=== PATIENT | female | born 1960 | race Caucasian/White ===

== ENCOUNTER 2016-12-17 11:26 | Inpatient (IN) | payer BC ==
[~2016-12-17] VITALS: Ht 157.5 cm; Wt 66.0 kg
[2016-12-17] VITALS (129 sets, daily range): BP systolic 100–149; BP diastolic 52–76; PULSE 44–60; TEMP 97.6–98.2; O2SAT 82–98
[~2016-12-17 11:26] MED LIST: AMARYL 2MG T2 MG/TAB PO; ASPIRIN 32325 MG/TAB PO; COZAAR100 MG PO; CRESTOR 10MG10 MG PO; FLEXERIL 1010 MG/TAB PO; GLUCOPHAGE1000 MG PO; LOPRESSOR 550 MG/TAB PO; LORTAB 7.5/5001 TAB PO; NITROSTAT0.4 MG/TAB SL; PLAVIX 75MG TAB75 MG PO; PRILOTC PO; XANAX .25M0.25 MG/TA PO; ZOCOR 10MG10 MG PO; ZOCOR5 MG PO
[2016-12-17 12:28] LABS: HEMOGLOBIN 13.7 g/dl (12.5-16.0); MEAN CELL VOLUME 88 fl (80.0-100.0); MEAN CORPUSCULAR HEMOGLOBIN 29 pg (27.0-31.0); MEAN CORPUSCULAR HGB CONC 33 g/dl (33.0-37.0); MEAN PLATELET VOLUME 9.8 fl (7.4-10.4); PLATELET COUNT 184 K/mm3 (130-400); RED BLOOD COUNT 4.67 M/mm3 (4.10-5.30); REDCELL DISTRIBUTION WIDTH-CV 14.8 % (11.5-14.5); WHITE BLOOD COUNT 10.7 K/mm3 (4.8-10.8)
[2016-12-17 12:32] LABS: INR 1.1 (0.8-3.0); PROTHROMBIN TIME 11.7 SECONDS (9.7-12.8)
[2016-12-17 12:49] LABS: CALCIUM 9.6 mg/dL (8.4-10.2); CREATININE, serum 0.66 mg/dL (0.52-1.25); POTASSIUM 3.9 mmol/L (3.4-5.0)
[2016-12-17] MEDS ORDERED: NOVOLOG FLEX100 U/ML SQ (13:33)
[2016-12-17] MEDS ORDERED: LEVEMIR FLEX100 U/ML SQ (13:38)
[2016-12-17] MEDS ORDERED: MAG-OX 400400 MG/TAB PO (13:39)
[2016-12-17] MEDS ORDERED: ASPIRIN E.C. 8181 MG PO (13:39)
[2016-12-17] MEDS ORDERED: JANUMXR1000-50 PO (13:41)
[2016-12-17] MEDS ORDERED: DAZIDOX10 MG PO (13:43)
[2016-12-17] MEDS ORDERED: NEURONTIN300 MG/CAP PO ×2 (13:45)
[2016-12-17] MEDS ORDERED: MULTI VITAMINS1 TAB PO (13:48)
[2016-12-17] MEDS ORDERED: FARXIGA5 PO (13:48)
[2016-12-17] MEDS ORDERED: ANORO IH (13:49)
[2016-12-17] MEDS ORDERED: PROZAC 10MG10 MG PO (13:50)
[2016-12-17] MEDS ORDERED: PLAVIX 75MG TAB75 MG PO (19:58)
[2016-12-18] VITALS (141 sets, daily range): BP systolic 142–145; BP diastolic 72–75; PULSE 54–74; TEMP 97.2–98; O2SAT 86–100
[2016-12-18 05:12] LABS: BASO # 0.1 (0.0-0.2); BASO % 0.6 % (0.0-2.0); EOS # 0.1 (0.0-0.7); EOS % 1.1 % (0-4.0); GRAN # 6.2 (1.4-6.5); GRAN % 68.4 % (42.2-75.2); HEMOGLOBIN 14.5 g/dl (12.5-16.0); LYMPH % 21.7 % (20.0-51.0); MEAN CELL VOLUME 88 fl (80.0-100.0); MEAN CORPUSCULAR HEMOGLOBIN 29 pg (27.0-31.0); MEAN CORPUSCULAR HGB CONC 33 g/dl (33.0-37.0); MEAN PLATELET VOLUME 9.6 fl (7.4-10.4); MONO # 0.7 (0.1-0.6); MONO % 7.6 % (1.7-9.3); PLATELET COUNT 182 K/mm3 (130-400); RED BLOOD COUNT 5.01 M/mm3 (4.10-5.30); REDCELL DISTRIBUTION WIDTH-CV 15.1 % (11.5-14.5); WHITE BLOOD COUNT 9.1 K/mm3 (4.8-10.8)
[2016-12-18 05:26] LABS: CALCIUM 9.9 mg/dL (8.4-10.2); CREATININE, serum 0.65 mg/dL (0.52-1.25); POTASSIUM 4.3 mmol/L (3.4-5.0)
== END 2016-12-18 10:58 | disposition home or self-care (01) | DRG 247 ==
LOC: COL.CAR 11:26 → ICU 16:38 → COL.CAR 16:49 → ICU 16:50
PROVIDERS: Internal Medicine Interventional Cardiology
PROC: 027034Z Dilation of Coronary Artery, One Artery with Drug-eluting Intraluminal Device, Percutaneous Approach (ICD-10-PCS; principal; 2016-12-17)
PROC: 4A023N7 Measurement of Cardiac Sampling and Pressure, Left Heart, Percutaneous Approach (ICD-10-PCS; 2016-12-17)
PROC: B2111ZZ Fluoroscopy of Multiple Coronary Arteries using Low Osmolar Contrast (ICD-10-PCS; 2016-12-17)
PROC: B2121ZZ Fluoroscopy of Single Coronary Artery Bypass Graft using Low Osmolar Contrast (ICD-10-PCS; 2016-12-17)
PROC: B2181ZZ Fluoroscopy of Left Internal Mammary Bypass Graft using Low Osmolar Contrast (ICD-10-PCS; 2016-12-17)
DX: I25.10 Atherosclerotic heart disease of native coronary artery without angina pectoris (principal); I10 Essential (primary) hypertension; J44.9 Chronic obstructive pulmonary disease, unspecified; E11.9 Type 2 diabetes mellitus without complications; F17.210 Nicotine dependence, cigarettes, uncomplicated; Z79.84 Long term (current) use of oral hypoglycemic drugs
CPT/HCPCS: C9600; J0583; J1815; J2250; J3010; Q9967

== ENCOUNTER → 2017-04-06 | Outpatient (CLI) | payer MEDICAID ==
[~2017-04-06] MED LIST changes: +ANORO IH; +ASPIRIN E.C. 8181 MG PO; +DAZIDOX10 MG PO; +FARXIGA5 PO; +JANUMXR1000-50 PO; +LEVEMIR FLEX100 U/ML SQ; +MAG-OX 400400 MG/TAB PO; +MULTI VITAMINS1 TAB PO; +NEURONTIN300 MG/CAP PO; +NOVOLOG FLEX100 U/ML SQ; +PROZAC 10MG10 MG PO
== END ==
LOC: COL.RAD 03-29 08:00
DX: K76.89 Other specified diseases of liver (principal); R06.02 Shortness of breath; Z90.49 Acquired absence of other specified parts of digestive tract

== ENCOUNTER → 2017-05-02 | Outpatient (CLI) | payer MEDICAID ==
[2017-05-02 09:25] LABS: ARTERIAL BLD GAS O2 SATURATION 96.6 % (92-100); ARTERIAL BLD GAS TCO2 CT 25.6; ARTERIAL BLOOD GAS BASE EXCESS 1.9 (-2-2); ARTERIAL BLOOD GAS HCO3 24.6 meq/L (22-26); ARTERIAL BLOOD GAS PCO2 32.6 mmHg (35-45)
== END ==
LOC: COL.PUL 07:49
PROVIDERS: Internal Medicine Interventional Cardiology
DX: R06.02 Shortness of breath (principal); F17.210 Nicotine dependence, cigarettes, uncomplicated

== ENCOUNTER 2018-06-30 07:33 | Outpatient (CLI) | payer MEDICAID ==
[2018-06-30 08:06] VITALS: BP 109/61; PULSE 57; TEMP 98.6
[2018-06-30 09:05] LABS: HEMOGLOBIN 11.1 g/dl (12.5-16.0); MEAN CELL VOLUME 87 fl (80.0-100.0); MEAN CORPUSCULAR HEMOGLOBIN 28 pg (27.0-31.0); MEAN CORPUSCULAR HGB CONC 32 g/dl (33.0-37.0); MEAN PLATELET VOLUME 9.8 fl (7.4-10.4); PLATELET COUNT 167 K/mm3 (130-400); RED BLOOD COUNT 3.95 M/mm3 (4.10-5.30); REDCELL DISTRIBUTION WIDTH-CV 14.3 % (11.5-14.5)
[2018-06-30 09:08] LABS: INR 1.1 (0.8-3.0); PROTHROMBIN TIME 12.1 SECONDS (9.7-12.8)
[2018-06-30 09:15] LABS: CALCIUM 9.3 mg/dL (8.4-10.2); CREATININE, serum 0.62 (0.52-1.25); POTASSIUM 4.2 mmol/L (3.4-5.0)
[2018-06-30 09:20] LABS: HEMATOCRIT 34.3 % (37.0-47.0)
[2018-06-30] MEDS ORDERED: ATIVAN 0.50.5 MG/TAB PO (09:50)
[2018-06-30] MEDS ORDERED: GLUCOPHAGE1000 MG PO (09:51)
[2018-06-30] MEDS ORDERED: PROTONIX 40MG T40 MG PO (09:52)
[2018-06-30] MEDS ORDERED: CRESTOR20 MG PO (09:57)
[2018-06-30] MEDS ORDERED: IMDUR 30MG30 MG/TAB PO (09:57)
[2018-06-30 11:20] VITALS: BP 117/62; PULSE 58
--- NOTE | 2018-06-30 11:20 | NUR ---
PT IN ROOM 15 POST VIPIN. VSS AND AX0X3. PAIN DENIED AT THIS TIME AND IS RESTING IN BED.
[2018-06-30 11:35] VITALS: BP 112/61; PULSE 57
[2018-06-30 11:50] VITALS: BP 106/54; PULSE 53
[2018-06-30 12:05] VITALS: BP 114/61; PULSE 52
[2018-06-30 12:20] VITALS: BP 112/61; PULSE 58
--- NOTE | 2018-06-30 12:45 | NUR ---
PT TOLERATED FLUIDS PO WITHOUT ISSUE POST VIPIN. VSS AND AX0.DISCHARGE INSTRUCTIONS REVIEWED AND SIGNED. IV REMOVED FROM R HAND AND WRAPPED. PT WHEELED OUT SAFELY VIA WHEELCHAIR BY BURSING STUDENT. BROTHER WAITING WITH CAR INSPECTOR MOTOR VEHICLES.
== END 2018-06-30 12:30 | disposition home or self-care (01) ==
LOC: COL.RAD 07:33
PROVIDERS: Internal Medicine Interventional Cardiology
DX: I08.1 Rheumatic disorders of both mitral and tricuspid valves (principal)
CPT/HCPCS: J2704; J7030

== ENCOUNTER 2018-08-04 10:48 | Day surgery (SDC) | payer MEDICAID ==
[~2018-08-04] VITALS: Ht 157.6 cm; Wt 69.3 kg
[2018-08-04] VITALS (8 sets, daily range): BP systolic 105–130; BP diastolic 53–87; PULSE 51–64; TEMP 98.1
[~2018-08-04 10:48] MED LIST changes: +ATIVAN 0.50.5 MG/TAB PO; +CRESTOR20 MG PO; +IMDUR 30MG30 MG/TAB PO; +PROTONIX 40MG T40 MG PO
[2018-08-04] MEDS ORDERED: PROVENTIL0.09 MG/A1 IH (11:53)
[2018-08-04] MEDS ORDERED: LIPITOR 10MG10 MG PO (11:53)
[2018-08-04] MEDS ORDERED: FLEXERIL 1010 MG/TAB PO (11:54)
[2018-08-04] MEDS ORDERED: VITAMIN D31000 I1 PO (11:55)
[2018-08-04] MEDS ORDERED: PROZAC 20MG20 MG PO (11:55)
[2018-08-04] MEDS ORDERED: PROZAC40 MG PO (11:56)
[2018-08-04 12:05] LABS: CALCIUM 9.5 mg/dL (8.4-10.2); CREATININE, serum 0.6 (0.52-1.25); POTASSIUM 4.2 mmol/L (3.4-5.0)
[2018-08-04 12:06] LABS: HEMOGLOBIN 10.8 g/dl (12.5-16.0); MEAN CELL VOLUME 87 fl (80.0-100.0); MEAN CORPUSCULAR HEMOGLOBIN 28 pg (27.0-31.0); MEAN CORPUSCULAR HGB CONC 32 g/dl (33.0-37.0); PLATELET COUNT 160 K/mm3 (130-400); RED BLOOD COUNT 3.84 M/mm3 (4.10-5.30); REDCELL DISTRIBUTION WIDTH-CV 14.7 % (11.5-14.5)
[2018-08-04 12:15] LABS: INR 1.1 (0.8-3.0)
[2018-08-04 12:39] LABS: HEMATOCRIT 33.5 % (37.0-47.0)
--- NOTE | 2018-08-04 16:24 | NUR ---
PLEASE SEE MERGE FOR MEDICATION ADMINISTRATION TIMES , SEDATION ASSESSMENT DATA FOR INTRA/POST PROCEDURE.
--- NOTE | 2018-08-04 17:57 | NUR ---
Back from Approver. Alert and oriented. Right groin site CD&I and soft to palpation. Left radial Tband with 13 cc air, good pulses and cap refill <3 secs. VSS. Daughter bedside
--- NOTE | 2018-08-04 19:25 | NUR ---
3 cc out of left Tband. No bleeding noted
--- NOTE | 2018-08-04 19:30 | NUR ---
3 cc air out of Tband. No bleeding noted
--- NOTE | 2018-08-04 19:35 | NUR ---
3 cc air out of Tband. No bleeding noted
--- NOTE | 2018-08-04 19:47 | NUR ---
4 cc out of Tband to total 13 cc. No bleeding noted. Tband discontined and pressure dressing applied. INT discontinued intact. Ambulated to bathroom with steady gait. Daughter getting car
--- NOTE | 2018-08-04 19:51 | NUR ---
Discharge instructions given . Transferred to private car by dustin
== END 2018-08-04 19:52 | disposition home or self-care (01) ==
LOC: COL.CAR 10:48
PROVIDERS: Internal Medicine Interventional Cardiology
DX: I25.10 Atherosclerotic heart disease of native coronary artery without angina pectoris (principal); E11.9 Type 2 diabetes mellitus without complications; Z95.1 Presence of aortocoronary bypass graft; Z79.82 Long term (current) use of aspirin; Z79.4 Long term (current) use of insulin; I34.0 Nonrheumatic mitral (valve) insufficiency; I27.20 Pulmonary hypertension, unspecified; K74.60 Unspecified cirrhosis of liver; Z79.02 Long term (current) use of antithrombotics/antiplatelets; J44.9 Chronic obstructive pulmonary disease, unspecified; F17.210 Nicotine dependence, cigarettes, uncomplicated; I10 Essential (primary) hypertension; E78.5 Hyperlipidemia, unspecified; G47.30 Sleep apnea, unspecified; Z88.8 Allergy status to other drugs, medicaments and biological substances
CPT/HCPCS: C1894; J1644; J2250; J3010; Q9967

== ENCOUNTER → 2018-08-25 | Outpatient (CLI) | payer MEDICAID ==
[~2018-08-25] MED LIST changes: +LIPITOR 10MG10 MG PO; +PROVENTIL0.09 MG/A1 IH; +PROZAC 20MG20 MG PO; +PROZAC40 MG PO; +VITAMIN D31000 I1 PO
== END ==
LOC: COL.RAD 07-28 06:58 → COL.PUL 11:20
DX: Z01.812 Encounter for preprocedural laboratory examination (principal); C18.9 Malignant neoplasm of colon, unspecified; I34.0 Nonrheumatic mitral (valve) insufficiency; K74.60 Unspecified cirrhosis of liver; I25.10 Atherosclerotic heart disease of native coronary artery without angina pectoris; F17.210 Nicotine dependence, cigarettes, uncomplicated; Z90.49 Acquired absence of other specified parts of digestive tract; Z95.828 Presence of other vascular implants and grafts
CPT/HCPCS: Q9967

== ENCOUNTER 2018-09-12 12:04 | Day surgery (SDC) | payer MEDICAID ==
[2018-09-12] VITALS (11 sets, daily range): BP systolic 102–134; BP diastolic 45–78; PULSE 57–81; TEMP 97.6–98.8
[~2018-09-12] VITALS: Ht 157.6 cm; Wt 69.8 kg
[~2018-09-12 12:04] MED LIST changes: +LOPRESSOR 225 MG/TAB PO; -LOPRESSOR 550 MG/TAB PO
[2018-09-12 12:53] LABS: HEMOGLOBIN 10.6 g/dl (12.5-16.0); MEAN CELL VOLUME 88 fl (80.0-100.0); MEAN CORPUSCULAR HEMOGLOBIN 28 pg (27.0-31.0); MEAN CORPUSCULAR HGB CONC 32 g/dl (33.0-37.0); MEAN PLATELET VOLUME 9.9 fl (7.4-10.4); PLATELET COUNT 149 K/mm3 (130-400); RED BLOOD COUNT 3.83 M/mm3 (4.10-5.30); REDCELL DISTRIBUTION WIDTH-CV 14.8 % (11.5-14.5)
[2018-09-12 13:02] LABS: CALCIUM 9.3 mg/dL (8.4-10.2); CREATININE, serum 0.73 (0.52-1.25); POTASSIUM 4.4 mmol/L (3.4-5.0)
[2018-09-12 13:08] LABS: HEMATOCRIT 33.6 % (37.0-47.0)
[2018-09-12 13:11] LABS: PROTHROMBIN TIME 11.8 SECONDS (9.7-12.8)
[2018-09-12] MEDS ORDERED: VITAMIN D 400400 IU PO (13:17)
[2018-09-12] MEDS ORDERED: LEVOXYL0.025 MG PO (13:42)
[2018-09-12] MEDS ORDERED: ASPIRIN E.C. 8181 MG PO (13:45)
[2018-09-12] MEDS ORDERED: FARXIGA5 PO (13:48)
[2018-09-12] MEDS ORDERED: NOVOLOG 100U100 U/M1 SQ (13:56)
--- NOTE | 2018-09-12 15:01 | NUR ---
PLEASE SEE MERGE FOR ALL MEDICATION ADMINISTRATION TIMES, SEDATION ASSESSMENT DATA .
--- NOTE | 2018-09-12 16:45 | NUR ---
given few ice chips, Dr Melvin notified of need for post orders, verbalizes he will put them in the computer
--- NOTE | 2018-09-12 17:15 | NUR ---
visiting with family, denies needs
--- NOTE | 2018-09-12 18:05 | NUR ---
assisted up to bathroom and voided QS, then back to bed to rest,
--- NOTE | 2018-09-12 18:19 | NUR ---
instructed on ordering heart healthy diet, luzmaria understanding
--- NOTE | 2018-09-12 18:57 | NUR ---
bedside shift report given to DOMINICK Calabrese
--- NOTE | 2018-09-12 22:43 | NUR ---
Ice pack placed on left chest per order. Patient states pain 3/10, and tolerable. Declined ordered ativan. Denies further needs at this time. Daugter at bedside is staying the night.
--- NOTE | 2018-09-12 23:07 | NUR ---
Shift assessment complete. Patient in bed, awake. States, pain 8/10 chronic back pain and 5/10 pain in PM site. Prn pain medication given. Daughter at bedside. Denies further needs at this time.
--- NOTE | 2018-09-13 02:16 | NUR ---
Patient in bed, resting. Appears comfortable. Daughter at bedside. Will continue to monitor.
[2018-09-13 03:30] VITALS: BP 145/69; PULSE 69; TEMP 99.2
--- NOTE | 2018-09-13 03:30 | NUR ---
Patient in bed, awake. Pain 7/10 in left chest incision. Will give prn pain medication per pt request. Temp 99.4. Instructed patient to C&DB. Will recheck temp. Denies further needs at this time. Will continue to monitor.
--- NOTE | 2018-09-13 05:58 | NUR ---
Patient in bed, dangling at bedside. States she just threw up. She thinks it's from the pain medication. Nausea has resolved since throwing up. BG 123. Crackers and soda given per pt request. Ice pack given for PM site. Will continue to monitor.
--- NOTE | 2018-09-13 07:26 | NUR ---
REPORT FROM KERA TAN.
[2018-09-13 07:57] VITALS: BP 139/63; PULSE 64; TEMP 97.4
--- NOTE | 2018-09-13 10:03 | NUR ---
PT UP INDEPENDENTLY IN ROOM. DRESSING TO LEFT CHEST CDI. ARM IN SLING PER ORDERS. PT DENIES NEEDS AT THIS TIME. PT DID EXPRESS THAT SHE DOES NOT HAVE ANY TRANSPORTATION TO GET HOME. FLOAT PHLEBOTOMIST NOTIFIED. DISCHARGE ORDERS RECIEVED BUT INCOMPLETE AT THIS TIME.
--- NOTE | 2018-09-13 10:25 | NUR ---
SW met with the patient to discuss discharge plan. The patient lives in [place] with her daughter (Jaz), son-in-law, grandson, and her brother. She reports independence with ADLs and has a cane and wheelchair. The patient's PCP is Dr. Lisa Onofre and she receives her medications at the [facility] in [place]. She reports no difficulties obtaining her meds. The patient's DPOA-HC and Living Will are in her chart. Her DPOA-HC is her daughters, Jaz and Chelsea. The patient plans to return home with her family upon discharge. No additional needs at this time.
--- NOTE | 2018-09-13 11:43 | NUR ---
First visit from the fire sprinkler fitter. No needs right now.
--- NOTE | 2018-09-13 11:50 | NUR ---
discharge instructions provided to patient and family. PT left independently ambulatory.
== END 2018-09-13 11:20 | disposition home or self-care (01) ==
LOC: COL.CAR 12:04 → MEDICAL 16:36 → COL.CAR 09-13 11:20
PROVIDERS: Internal Medicine Interventional Cardiology
DX: R00.1 Bradycardia, unspecified (principal); Z88.8 Allergy status to other drugs, medicaments and biological substances; Z79.82 Long term (current) use of aspirin; Z79.4 Long term (current) use of insulin; Z79.02 Long term (current) use of antithrombotics/antiplatelets; I25.10 Atherosclerotic heart disease of native coronary artery without angina pectoris; I34.0 Nonrheumatic mitral (valve) insufficiency; I10 Essential (primary) hypertension; Z95.1 Presence of aortocoronary bypass graft; J44.9 Chronic obstructive pulmonary disease, unspecified; E78.5 Hyperlipidemia, unspecified; E11.9 Type 2 diabetes mellitus without complications; Z79.84 Long term (current) use of oral hypoglycemic drugs; K74.60 Unspecified cirrhosis of liver; G47.00 Insomnia, unspecified; I73.9 Peripheral vascular disease, unspecified; Z87.891 Personal history of nicotine dependence
CPT/HCPCS: OP; C1785; C1894; C1898; J0690; J1815; J2250; J3010; J7030

== ENCOUNTER → 2019-03-02 | Outpatient (CLI) | payer MEDICAID ==
[~2019-03-02] MED LIST changes: +LEVOXYL0.025 MG PO; +NOVOLOG 100U100 U/M1 SQ; +VITAMIN D 400400 IU PO
== END ==
LOC: COL.RAD 10:04
DX: K74.60 Unspecified cirrhosis of liver (principal); Z90.49 Acquired absence of other specified parts of digestive tract

== ENCOUNTER 2020-04-25 12:08 | Day surgery (SDC) | payer MEDICARE, MEDICAID ==
[2020-04-25] VITALS (11 sets, daily range): BP systolic 100–120; BP diastolic 48–69; PULSE 59–63; TEMP 97.9
[~2020-04-25] VITALS: Ht 157.5 cm; Wt 65.9 kg
[~2020-04-25 12:08] MED LIST changes: -ATIVAN 0.50.5 MG/TAB PO; +ATIVAN 1MG T1 MG/TAB PO; -DAZIDOX10 MG PO; -LIPITOR 10MG10 MG PO; +ROXICODONE15 MG PO; -VITAMIN D 400400 IU PO
[2020-04-25 13:31] LABS: HEMATOCRIT 37.2 % (37.0-47.0); HEMOGLOBIN 12.2 g/dl (12.5-16.0); MEAN CELL VOLUME 90 fl (80.0-100.0); MEAN CORPUSCULAR HEMOGLOBIN 30 pg (27.0-31.0); MEAN CORPUSCULAR HGB CONC 33 g/dl (33.0-37.0); MEAN PLATELET VOLUME 10.1 fl (7.4-10.4); PLATELET COUNT 155 K/mm3 (130-400); RED BLOOD COUNT 4.14 M/mm3 (4.10-5.30); REDCELL DISTRIBUTION WIDTH-CV 13.7 % (11.5-14.5)
[2020-04-25 13:39] LABS: INR 1.1 (0.8-3.0); PROTHROMBIN TIME 12.3 SECONDS (9.7-12.8)
[2020-04-25 13:41] LABS: CALCIUM 9.6 mg/dL (8.4-10.2); CREATININE, serum 0.72 (0.52-1.25); POTASSIUM 3.8 mmol/L (3.4-5.0)
[2020-04-25 13:42] LABS: PARTIAL THROMBOPLASTIN TIME 30.2 SECONDS (26.0-37.0)
[2020-04-25] MEDS ORDERED: NEURONTIN300 MG/CAP PO (13:52)
--- NOTE | 2020-04-25 14:17 | NUR ---
SEE MERGE DOCUMENTATION FOR MEDICATION ADMINISTRATION AND INTRA/POST PROCEDURE SEDATION ASSESSMENTS.
--- NOTE | 2020-04-25 15:30 | NUR ---
PT BACK FROM OUTREACH COUNSELOR, BS REPORT FROM RICA TAN. PT IS AWAKE AND ALERT, NO DISTRESS. RT GROIN SITE SOFT WITH CLEAN DRY AND INTACT DRESSING, CMS INTACT DISTAL. CALL LIGHT IN REACH.
--- NOTE | 2020-04-25 18:44 | NUR ---
PT DOING WELL DURING HER RECOVERY, RT GROIN HAS REMAINED SOFT AND CMS IS INTACT DISTAL. PT AND I JUST REVIEWED DC AND FU INSTRUCTIONS, PT DENIES QUESTIONS ABOUT THESE. PLAN TO END BEDREST AT 1910, THEN DC HOME IF NO PROBLEM AT GROIN SITE.
--- NOTE | 2020-04-25 19:30 | NUR ---
PT READY FOR DEPARTURE. Bedrest ended at 1909, pt was ambulatory around nurses station and in room with no problem. Rt groin site remains soft, dressing clean dry and intact, cms intact distal. IV is dc'd with cath intact, dressing applied. Pt denies any questions about dc/fu instructions. to exit via wheelchair.
== END 2020-04-25 19:45 | disposition home or self-care (01) ==
LOC: COL.CAR 12:08
PROVIDERS: Internal Medicine Interventional Cardiology
DX: I25.10 Atherosclerotic heart disease of native coronary artery without angina pectoris (principal); I65.29 Occlusion and stenosis of unspecified carotid artery; I34.0 Nonrheumatic mitral (valve) insufficiency; Z95.0 Presence of cardiac pacemaker; E04.1 Nontoxic single thyroid nodule; E11.9 Type 2 diabetes mellitus without complications; E78.5 Hyperlipidemia, unspecified; Z79.82 Long term (current) use of aspirin; Z79.84 Long term (current) use of oral hypoglycemic drugs; Z95.1 Presence of aortocoronary bypass graft; F17.210 Nicotine dependence, cigarettes, uncomplicated; G47.33 Obstructive sleep apnea (adult) (pediatric); K74.60 Unspecified cirrhosis of liver
CPT/HCPCS: J1644; J2250; J3010; Q9967